=== PATIENT | female | born 2000 | race Caucasian/White ===

== ENCOUNTER 2020-06-28 15:23 | Emergency (ER) | payer BC ==
[2020-06-28] MEDS ORDERED: Ibuprofen 800 MG Tab PO ONE (15:25)
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
--- NOTE | 2020-06-28 16:01 | CR ---
HISTORY: Right forearm pain. COMPARISON: None. FINDINGS: Two views of the right forearm. The bones, joints and soft tissues are within normal. No evidence for acute fracture, dislocation or foreign body. Dictated by Josefina Bui MD @ Jun 28 2020 3:59PM Signed by Dr. Josefina Bui @ Jun 28 2020 4:00PM
--- NOTE | 2020-06-28 16:01 | CR ---
FINDINGS: Knee pain swelling 3 views of the right knee Findings: Normal alignment. No fractures. Anterior soft tissue edema. No large effusion. Slight lateral patellar subluxation. Dictated by Rosalinda Garcia MD @ Jun 28 2020 3:59PM Signed by Dr. Rosalinda Garcia @ Jun 28 2020 4:00PM
== END 2020-06-28 16:14 | disposition home or self-care (01) ==
LOC: MW.ED 15:23
DX: S86.811A Strain of other muscle(s) and tendon(s) at lower leg level, right leg, initial encounter (principal); S50.11XA Contusion of right forearm, initial encounter; V89.2XXA Person injured in unspecified motor-vehicle accident, traffic, initial encounter
CPT/HCPCS: 73090; 73562; 99283; A9270